=== PATIENT | female | born 1985 | race American Indian/Alaskan Native ===

== ENCOUNTER 2017-03-13 02:46 | Observation (INO) | payer BC, MEDICAID ==
[2017-03-13 02:47] VITALS: BMI 22.6
[2017-03-13] MEDS ORDERED: Morphine 4 mg/ml ISec IVP STA (02:58)
[2017-03-13] MEDS ORDERED: Sodium Chloride 0.9% 1,000 ML IV STA (02:58)
--- NOTE | 2017-03-13 03:08 | ED PDOC ---
Arrival/HPI - General Chief Complaint: Abdominal Pain Time Seen by Provider: 03/13/17 02:47 Historian: Patient - History of Present Illness Narrative History of Present Illness (Text): 03/13/17 03:08 A 31 year old female, who denies any past medical history, presents to the emergency department complaining of epigastric abdominal pain and vomiting for the past three hours. Patient denies any other complaints at this time. Denies any surgeries. Time/Duration: 1-3 hours Symptom Onset: Sudden Symptom Course: Unchanged Activities at Onset: Rest Context: Home Past Medical History - Provider Review Nursing Documentation Reviewed: Yes - Infectious Disease Hx of Infectious Diseases: None - Tetanus Immunization Tetanus Immunization: Unknown - Past Medical History Past Medical History: No Previous - Psychiatric Hx Depression: No Hx Emotional Abuse: No Hx Physical Abuse: No Hx Substance Use: No - Past Surgical History Past Surgical History: No Previous - Suicidal Assessment Feels Threatened In Home Enviroment: No Family/Social History - Physician Review Nursing Documentation Reviewed: Yes Family/Social History: No Known Family HX Smoking Status: Never Smoked Hx Alcohol Use: No Hx Substance Use: No Hx Substance Use Treatment: No Allergies/Home Meds Allergies/Adverse Reactions: Allergies No Known Allergies Allergy (Verified 03/13/17 02:56) Review of Systems - Physician Review All systems were reviewed & negative as marked: Yes - Review of Systems Constitutional: absent: Fevers Gastrointestinal: Abdominal Pain (epigastric), Vomiting Physical Exam Vital Signs Reviewed: Yes Vital Signs Temp Pulse Resp BP Pulse Ox 03/13/17 11:27 98.6 F 90 17 110/78 100 03/13/17 10:38 90 17 110/78 100 03/13/17 09:04 82 17 109/56 L 100 03/13/17 06:58 86 18 112/56 L 100 03/13/17 03:07 97.8 F 98 H 20 105/45 L 100 Appearance: Positive for: Uncomfortable Pain Distress: Mild Mental Status: Positive for: Alert and Oriented X 3 - Systems Exam Head: Present: Atraumatic, Normocephalic Pupils: Present: PERRL Extroacular Muscles: Present: EOMI Conjunctiva: Present: Normal Mouth: Present: Moist Mucous Membranes Neck: Present: Normal Range of Motion Respiratory/Chest: Present: Clear to Auscultation, Good Air Exchange. No: Respiratory Distress, Accessory Muscle Use Cardiovascular: Present: Regular Rate and Rhythm, Normal S1, S2. No: Murmurs Abdomen: Present: Tenderness (epigastric ), Normal Bowel Sounds. No: Distention , Peritoneal Signs Back: Present: Normal Inspection Upper Extremity: Present: Normal Inspection. No: Cyanosis, Edema Lower Extremity: Present: Normal Inspection. No: Edema Neurological: Present: GCS=15, CN II-XII Intact, Speech Normal Skin: Present: Warm, Dry, Normal Color. No: Rashes Psychiatric: Present: Alert, Oriented x 3, Normal Insight, Normal Concentration Medical Decision Making ED Course and Treatment: 03/13/17 03:06 Impression: A 31 year old female with epigastric abdominal pain and vomiting. Plan: -- labs -- Urinalysis -- Morphine, IV fluids, Zofran -- Reassess and disposition Prior Visits: Notes and results from previous visits were reviewed. Patient was last seen in the emergency department on 01/29/13 for evaluation of abdominal pain, nausea and vomiting. Progress Notes: CT Abdomen and Pelvis With Intravenous Contrast FINDINGS: Lower thorax: The bilateral lung bases are clear. ABDOMEN: Liver: No acute findings. Gallbladder and bile ducts: The gallbladder is minimally distended, without stones. No significant intra- or extrahepatic biliary ductal dilation. Pancreas: Enhances homogeneously. No ductal dilation. No discrete mass. Spleen: No acute findings. Adrenals: No acute findings. Kidneys and ureters: No acute findings. No hydronephrosis or renal calculi. No discrete solid mass. PELVIS: Bladder: The bladder is only minimally distended, without surrounding inflammation . Reproductive: The uterus is anteverted and anteflexed. The bilateral ovaries are not separately visualized. Appendix: The appendix is not definitively visualized, however no pericecal inflammatory change is identified to suggest the presence of acute appendicitis. ABDOMEN and PELVIS: Stomach and bowel: No obstruction. Limited additional evaluation secondary to motion artifact. Peritoneum: Free fluid is identified within the pelvis, although further evaluation is limited secondary to motion artifact. Lymph nodes: No pathologically enlarged lymph nodes. Vasculature: Unremarkable. Bones: No acute fracture. IMPRESSION: Free fluid within the pelvis, possibly physiologic in a patient of this age. Additional characterization is limited secondary to motion artifact and the lack of intra-abdominal fat. Perhaps a pelvic ultrasound may provide additional information (as the varies are not visualized), if the patient is clinically able. Dictated and Authenticated by: Kiersten Vines MD 03/13/2017 5:59 AM Eastern Time ([place] & [place]) - Lab Interpretations Lab Results: 03/13/17 03:30 03/13/17 03:30 Lab Results 03/13/17 03:30: Sodium 142, Potassium 4.7, Chloride 104, Carbon Dioxide 23, Anion Gap 20, BUN 15, Creatinine 0.6 L, Est GFR ( Amer) > 60, Est GFR ( Non-Af Amer) > 60, Random Glucose 125 H, Calcium 10.2, Total Bilirubin 0.9, AST 49 H, ALT 34, Alkaline Phosphatase 73, Total Protein 9.1 H, Albumin 5.3 H, Globulin 3.8, Albumin/Globulin Ratio 1.4, Lipase 95 03/13/17 03:30: PT 12.2 H, INR 1.11 H, APTT 25.3 03/13/17 03:30: WBC 9.6, RBC 4.85, Hgb 13.1, Hct 40.3, MCV 83.1, MCH 27.0, MCHC 32.5, RDW 14.6 H, Plt Count 230, MPV 10.3, Gran % 59.8, Lymph % (Auto) 34.8, Ramsey % (Auto) 4.6, Eos % (Auto) 0.5 L, Baso % (Auto) 0.3, Gran # 5.75, Lymph # 3.4, Ramsey # 0.4, Eos # 0.1, Baso # 0.03 03/13/17 02:58: Urine Color Yellow, Urine Appearance Clear, Urine pH 8.5, Ur Specific [place] 1.010, Urine Protein Negative, Urine Glucose (UA) Negative, Urine Ketones 15 H, Urine Blood Negative, Urine Nitrate Negative, Urine Bilirubin Negative, Urine Urobilinogen 0.2, Ur Leukocyte Esterase Negative, Urine HCG, Qual Negative I have reviewed the lab results: Yes - RAD Interpretation Radiology Orders: 03/13/17 04:27 ABD & PELVIS IV CONTRAST ONLY [CT] Stat - Medication Orders Current Medication Orders: Discontinued Medications Acetaminophen (Tylenol 325mg Tab) 650 mg PO Q6H PRN PRN Reason: Fever >100.4 F Sodium Chloride (Sodium Chloride 0.9%) 1,000 mls @ 1,000 mls/hr IV .Q1H STA Stop: 03/13/17 03:57 Last Admin: 03/13/17 03:47 Dose: 1,000 mls/hr eMAR Start Stop Document 03/13/17 03:47 [facility] (Rec: 03/13/17 03:47 SMA [id number]) Intravenous Solution Start Date 03/13/17 Start Time 03:30 End Date 03/13/17 End time 04:30 Total Infusion Time 60 Lactated Ringer's (Lactated Ringer's) 1,000 mls @ 100 mls/hr IV .Q10H [facility] Last Admin: 03/13/17 08:25 Dose: 100 mls/hr eMAR Start Stop Document 03/13/17 08:25 IT (Rec: 03/13/17 08:25 IT [id number]) Intravenous Solution Start Date 03/13/17 Start Time 08:25 Ketorolac Tromethamine (Toradol) 30 mg IVP STAT STA Stop: 03/13/17 05:34 Last Admin: 03/13/17 06:03 Dose: 30 mg MAR Pain Assessment Document 03/13/17 06:03 [facility] (Rec: 03/13/17 06:03 SMA [id number]) Pain Reassessment Is this a pain reassessment? No Sleep Is patient sleeping during reassessment? No Presence of Pain Presence of Pain Yes Pain Scale Used Pain Scale Used Numeric Location Pain Location Body Site Abdomen Description Description Sharp Intensity of Pain at present 6 IVP Administration Document 03/13/17 06:03 [facility] (Rec: 03/13/17 06:03 [facility] [id number]) Charges for Administration # of IVP Administrations 1 Ketorolac Tromethamine (Toradol) 30 mg IVP Q4 PRN PRN Reason: Pain, moderate (4-7) Ketorolac Tromethamine (Toradol) 30 mg IVP Q8 PRN PRN Reason: Pain, moderate (4-7) Metoclopramide HCl (Reglan) 10 mg IVP STAT STA Stop: 03/13/17 06:04 Last Admin: 03/13/17 06:42 Dose: 10 mg IVP Administration Document 03/13/17 06:42 [facility] (Rec: 03/13/17 06:42 [facility] [id number]) Charges for Administration # of IVP Administrations 1 Morphine Sulfate (Morphine) 2 mg IVP STAT STA Stop: 03/13/17 03:16 Last Admin: 03/13/17 04:10 Dose: 2 mg MAR Pain Assessment Document 03/13/17 04:10 [facility] (Rec: 03/13/17 04:11 [facility] [id number]) Pain Reassessment Is this a pain reassessment? No Sleep Is patient sleeping during reassessment? No Presence of Pain Presence of Pain Yes Pain Scale Used Pain Scale Used Numeric Location Pain Location Body Site Abdomen Description Description Sharp Intensity of Pain at present 7 Pain Behavior Moaning Guarding Irritability Alleviating Factors/Management Medication Techniques Alleviating Factors Position Change IVP Administration Document 03/13/17 04:10 [facility] (Rec: 03/13/17 04:11 [facility] [id number]) Charges for Administration # of IVP Administrations 1 Morphine Sulfate (Morphine) 2 mg IVP Q4 PRN PRN Reason: Pain, severe (8-10) Ondansetron HCl (Zofran Inj) 4 mg IVP STAT STA Stop: 03/13/17 02:59 Last Admin: 03/13/17 03:47 Dose: 4 mg IVP Administration Document 03/13/17 03:47 [facility] (Rec: 03/13/17 03:48 [facility] [id number]) Charges for Administration # of IVP Administrations 1 Ondansetron HCl (Zofran Inj) 4 mg IVP Q4 PRN PRN Reason: Nausea/Vomiting Pantoprazole Sodium (Protonix Inj) 40 mg IVP STAT STA Stop: 03/13/17 04:35 Last Admin: 03/13/17 04:44 Dose: 40 mg IVP Administration Document 03/13/17 04:44 [facility] (Rec: 03/13/17 04:44 [facility] [id number]) Charges for Administration # of IVP Administrations 1 Pantoprazole Sodium (Protonix Inj) 40 mg IVP Q12 RAD Last Admin: 03/13/17 11:40 Dose: 40 mg IVP Administration Document 03/13/17 11:40 [facility] (Rec: 03/13/17 13:41 DC [id number]) Charges for Administration # of IVP Administrations 1 - Scribe Statement The provider has reviewed the documentation as recorded by the Malcolmibjayesh Velásquez Provider Scribe Attestation: All medical record entries made by the Scribe were at my direction and personally dictated by me. I have reviewed the chart and agree that the record accurately reflects my personal performance of the history, physical exam, medical decision making, and the department course for this patient. I have also personally directed, reviewed, and agree with the discharge instructions and disposition. Disposition/Present on Arrival - Present on Arrival Any Indicators Present on Arrival: No History of DVT/PE: No History of Uncontrolled Diabetes: No Urinary Catheter: No History of Decub. Ulcer: No History Surgical Site Infection Following: None - Disposition Have Diagnosis and Disposition been Completed?: Yes Diagnosis: Intractable vomiting Disposition: HOSPITALIZED Disposition Time: 07:00 Condition: STABLE
[2017-03-13 03:09] VITALS: O2SAT 100
[2017-03-13] MEDS ORDERED: Morphine 2 mg/ml ISec IVP STA (03:15)
[2017-03-13 04:11] LABS: ALB/GLOB RATIO 1.4 (1.1-1.8); ALKALINE PHOSPHATASE 73 U/L (38-126); ALT/SGPT 34 U/L (7-56); AST/SGOT 49 U/L (14-36); BILIRUBIN,TOTAL 0.9 mg/dL (0.2-1.3); BLOOD UREA NITROGEN 15 mg/dL (7-21); CALCIUM 10.2 mg/dL (8.4-10.5); CARBON DIOXIDE 23 mmol/L (21-33); CHLORIDE 104 mmol/L (95-110); GFR AFRICAN-AMERICAN > 60; GLUCOSE,RANDOM 125 mg/dL (70-110); LIPASE 95 U/L (23-300); POTASSIUM 4.7 mmol/L (3.6-5.0); SODIUM 142 mmol/L (132-148); TOTAL PROTEIN 9.1 g/dL (5.8-8.3)
[2017-03-13 04:13] LABS: BASO # 0.03 K/mm3 (0.0-2.0); BASO % 0.3 % (0.0-3.0); EOS # 0.1 (0.0-0.7); EOS % 0.5 % (1.5-5.0); GRAN # 5.75 (1.4-6.5); GRAN % 59.8 % (50.0-68.0); HEMATOCRIT 40.3 % (36.0-48.0); LYMPH # 3.4 (1.2-3.4); LYMPH % 34.8 % (22.0-35.0); MEAN CELL VOLUME 83.1 fl (80.0-105.0); MEAN CORPUSCULAR HGB CONC 32.5 g/dl (31.0-37.0); MEAN PLATELET VOLUME 10.3 fl (7.0-11.0); MONO # 0.4 (0.1-0.6); MONO % 4.6 % (1.0-6.0); RED CELL DISTRIBUTION WIDTH 14.6 % (11.5-14.5); WHITE BLOOD COUNT 9.6 10^3/ul (4.5-11.0)
[2017-03-13 04:21] LABS: INR 1.11 (0.93-1.08); PARTIAL THROMBOPLASTIN TIME 25.3 Seconds (23.7-30.8)
[2017-03-13] MEDS ORDERED: Iohexol 350 MG/100 ML VIAL ONE (04:37)
--- NOTE | 2017-03-13 05:59 | CT ---
EXAM: CT Abdomen and Pelvis With Intravenous Contrast CLINICAL HISTORY: 31 years old, female; Pain; Abdominal pain; Generalized; Additional info: Abd pain vomiting TECHNIQUE: Axial computed tomography images of the abdomen and pelvis with intravenous contrast. All CT scans at this facility use one or more dose reduction techniques, viz.: automated exposure control; ma/kV adjustment per patient size (including targeted exams where dose is matched to indication; i.e. head); or iterative reconstruction technique. Coronal and sagittal reformatted images were created and reviewed. CONTRAST: 96 mL of OMNI 350 administered intravenously. COMPARISON: No relevant prior studies available. Examination is markedly limited by a significant amount of motion artifact, as well as the lack of intra-abdominal fat. FINDINGS: Lower thorax: The bilateral lung bases are clear. ABDOMEN: Liver: No acute findings. Gallbladder and bile ducts: The gallbladder is minimally distended, without stones. No significant intra- or extrahepatic biliary ductal dilation. Pancreas: Enhances homogeneously. No ductal dilation. No discrete mass. Spleen: No acute findings. Adrenals: No acute findings. Kidneys and ureters: No acute findings. No hydronephrosis or renal calculi. No discrete solid mass. PELVIS: Bladder: The bladder is only minimally distended, without surrounding inflammation . Reproductive: The uterus is anteverted and anteflexed. The bilateral ovaries are not separately visualized. Appendix: The appendix is not definitively visualized, however no pericecal inflammatory change is identified to suggest the presence of acute appendicitis. ABDOMEN and PELVIS: Stomach and bowel: No obstruction. Limited additional evaluation secondary to motion artifact. Peritoneum: Free fluid is identified within the pelvis, although further evaluation is limited secondary to motion artifact. Lymph nodes: No pathologically enlarged lymph nodes. Vasculature: Unremarkable. Bones: No acute fracture. IMPRESSION: Free fluid within the pelvis, possibly physiologic in a patient of this age. Additional characterization is limited secondary to motion artifact and the lack of intra-abdominal fat. Perhaps a pelvic ultrasound may provide additional information (as the varies are not visualized), if the patient is clinically able.
[2017-03-13 06:56] LABS: PH,URINE 8.5 (4.7-8.0); URINE BILIRUBIN NEGATIVE (NEGATIVE); URINE BLOOD NEGATIVE (NEGATIVE); URINE GLUCOSE (UA) NEGATIVE (NEGATIVE); URINE KETONE 15 mg/dL (NEGATIVE); URINE LEUKOCYTE ESTERASE NEGATIVE Leu/uL (NEGATIVE); URINE PROTEIN NEGATIVE mg/dL (<30 mg/dL); URINE UROBILINOGEN 0.2 E.U./dL (<1 E.U./dL)
[2017-03-13 06:58] LABS: URINE APPEARANCE CLEAR (CLEAR); URINE COLOR YELLOW (YELLOW)
[2017-03-13] MEDS ORDERED: Morphine 2 mg/ml ISec IVP PRN (07:53)
[2017-03-13] MEDS ORDERED: Lactated Ringer's 1,000 ML IV SCH (08:00)
[2017-03-13 09:05] VITALS: RESP 17
[2017-03-13 10:39] VITALS: BP 110/78; PULSE 90
[2017-03-13 11:28] VITALS: TEMP 98.6
--- NOTE | 2017-03-13 11:31 | US ---
HISTORY: 31 F with lower abdominal pain. LMP 02/17/2017 COMPARISON: CT abdomen and pelvis 03/13/2017 TECHNIQUE: Transabdominal FINDINGS: UTERUS: Measures 9.0 x 4.2 x 6.5 cm. And is anteverted Normal in size and appearance. No fibroid or other mass lesion seen. ENDOMETRIUM: Measures 8.7 mm in diameter. Unremarkable. CERVIX: No cervical abnormality identified. RIGHT OVARY: Measures 3.0 x 2.4 x 2.0 cm. No solid mass. Normal flow. LEFT OVARY: Measures 3.3 x 2.1 x 2.1 cm. No solid mass. Normal flow. FREE FLUID: There is a minimal amount of pelvic free fluid present. OTHER FINDINGS: None. IMPRESSION: Unremarkable appearing ovaries. Minimal pelvic free fluid - in this age group, physiologic free fluid from recent follicular cyst rupture is most likely. Unremarkable appearing uterus No adnexal pathology noted
--- NOTE | 2017-03-13 12:03 | CP.PCM.HP ---
Addendum entered and electronically signed by Real Lorenzo DO 03/13/17 16:10 : During hospital stay, patient feeling significantly better after IVF and temporary bowel rest. Patient was given a soft diet and was tolerated well. Patient cleared for discharge in stable condition. d/w Medical Attending Real Lorenzo PGY1 Original Note: <Real Lorenzo - Last Filed: 03/13/17 12:32> History of Present Illness - History of Present Illness History of Present Illness: 31F no relevant PMHx, [place] [facility] for epigastrium pain w/ nausea and mulitple episodes of bilious non blood vomiting that woke her up from sleep and started at midnight. Upon arrival had an episode of non bloody loose BM. Prior to symptoms starting, pt says she had her last meal was at noon yesterday. She ate left over steak from the night before. There are no alleviating factors. Pt states she every couple of times per year, she gets severe episodes of gastroenteritis. Denies F/C CP/SOB numbness/tingling in extremities, vision changes, GAY LMP: 4 weeks ago PMH: one child, vaginal delivery no complications. 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 social ETOH, denies tobacco use, occasional marijuina use. Present on Admission - Present on Admission Any Indicators Present on Admission: No Review of Systems - Review of Systems All systems: reviewed and no additional remarkable complaints except - Constitutional Constitutional: As Per HPI Past Patient History - Infectious Disease Hx of Infectious Diseases: None - Tetanus Immunizations Tetanus Immunization: Unknown - Past Social History Smoking Status: Never Smoked - PSYCHIATRIC Hx Depression: No Hx Emotional Abuse: No Hx Physical Abuse: No Hx Substance Use: No - SURGICAL HISTORY Hx Surgeries: No Meds Allergies/Adverse Reactions: Allergies Allergy/AdvReac Type Severity Reaction Status Date / Time No Known Allergies Allergy Verified 03/13/17 02:56 Physical Exam - Constitutional Appears: Non-toxic, No Acute Distress - Eye Exam Eye Exam: EOMI. absent: Scleral icterus - ENT Exam ENT Exam: Mucous Membranes Dry - Respiratory Exam Respiratory Exam: NORMAL BREATHING PATTERN. absent: Accessory Muscle Use, Respiratory Distress - Cardiovascular Exam Cardiovascular Exam: +S1, +S2. absent: Bradycardia, Tachycardia - GI/Abdominal Exam GI & Abdominal Exam: Normal Bowel Sounds, Soft. absent: Distended, Guarding, Rigid, Tenderness - Extremities Exam Extremities exam: Positive for: normal inspection. Negative for: calf tenderness - Back Exam Back exam: absent: CVA tenderness (L), CVA tenderness (R) Results - Vital Signs Recent Vital Signs: Last Vital Signs Temp 98.6 F 03/13/17 11:27 Pulse 90 03/13/17 11:27 Resp 17 03/13/17 11:27 BP 110/78 03/13/17 11:27 Pulse Ox 100 03/13/17 11:27 - Labs Result Diagrams: 03/13/17 03:30 03/13/17 03:30 Assessment & Plan - Assessment and Plan (Free Text) Assessment: 31F no relevant PMHx w/ abdominal pain possible viral gastroenteritis CT scan: pelvic fluid Pelvic US: Ovaries visualized, physiologic pelvic fluid Gastroenteritis CLD IVF aggressive rehydrate anti-emetics f/u Labs PPX PTX counseled pt on the risk factors of smoking marijuina and advised pt to stop Real Ingridstan PGY1 <Page Fuentes - Last Filed: 03/14/17 14:07> Results - Vital Signs Recent Vital Signs: Last Vital Signs Temp 98.6 F 03/13/17 11:27 Pulse 90 03/13/17 11:27 Resp 17 03/13/17 11:27 BP 110/78 03/13/17 11:27 Pulse Ox 100 03/13/17 11:27 - Labs Result Diagrams: 03/13/17 03:30 03/13/17 03:30 Attending/Attestation - Attestation I have personally seen and examined this patient.: Yes I have fully participated in the care of the patient.: Yes I have reviewed all pertinent clinical information: Yes Notes (Text): 03/14/17 14:04 Patient was seen and examined with manager of medical. Agreed with resident assessment and plan. 31 yrs old female with out any significant PMH was admitted with intractable nausea and vomiting.Patient symptoms has improved since admission.Last episode of vomiting was 8 hrs back, she is tolerating diet.She will be discharged home and will follow up with PCP. Management plan was discussed in detail with patient Education was provided.
== END 2017-03-13 16:27 | disposition home or self-care (01) ==
LOC: ED 02:46 → ERH 06:11 → 3RSO 11:34
PROVIDERS: ADMIT Internal Medicine; ATTEND Internal Medicine
DX: A08.4 Viral intestinal infection, unspecified (principal)
CPT/HCPCS: 74177; 76856; 80053; 81003; 83690; 84703; 85025; 85610; 85730; 96361; 96374; 96375; 96376; 99285; C9113; G0378; J1885; J2270; J2405; J2765; J7040; J7120; Q9967

== ENCOUNTER 2017-12-27 22:29 | Emergency (ER) | payer MEDICAID ==
[2017-12-27 22:29] VITALS: BMI 22.6
[2017-12-27 23:15] VITALS: O2SAT 99
--- NOTE | 2017-12-27 23:59 | ED PDOC ---
Arrival/HPI - General Chief Complaint: Upper Extremity Problem/Injury Time Seen by Provider: 12/27/17 23:15 Historian: Patient - History of Present Illness Narrative History of Present Illness (Text): 12/27/17 23:48 32yo female with no pmhx who present with complaint of left shoulder pain x one week. States pain started when she did a flip and heard a crack. she came to the ED for the persistent pain. Did not take any medication. Denies focal weakness, paresthesia. Past Medical History - Provider Review Nursing Documentation Reviewed: Yes - Infectious Disease Hx of Infectious Diseases: None - Tetanus Immunization Tetanus Immunization: Unknown - Past Medical History Past Medical History: No Previous - Psychiatric Hx Depression: No Hx Emotional Abuse: No Hx Physical Abuse: No Hx Substance Use: No - Past Surgical History Past Surgical History: No Previous - Anesthesia Hx Anesthesia: No - Suicidal Assessment Feels Threatened In Home Enviroment: No Family/Social History - Physician Review Nursing Documentation Reviewed: Yes Family/Social History: Unknown Family HX Smoking Status: Never Smoked Hx Alcohol Use: No Hx Substance Use: No Hx Substance Use Treatment: No Allergies/Home Meds Allergies/Adverse Reactions: Allergies No Known Allergies Allergy (Verified 12/27/17 23:11) Review of Systems - Physician Review All systems were reviewed & negative as marked: Yes - Review of Systems Constitutional: Normal Eyes: Normal ENT: Normal Respiratory: Normal Cardiovascular: Normal Gastrointestinal: Normal Genitourinary Female: Normal Musculoskeletal: Arthralgias (LEft shoulder pain) Skin: Normal Neurological: Normal Endocrine: Normal Hemo/Lymphatic: Normal Psychiatric: Normal Physical Exam Vital Signs Reviewed: Yes Vital Signs Temp Pulse Resp BP Pulse Ox 12/28/17 01:00 98 F 79 18 113/61 99 12/27/17 23:12 98.7 F 83 17 114/56 L 99 Temperature: Afebrile Blood Pressure: Normal Pulse: Regular Respiratory Rate: Normal Appearance: Positive for: Well-Appearing, Non-Toxic, Comfortable Pain Distress: None Mental Status: Positive for: Alert and Oriented X 3 - Systems Exam Head: Present: Atraumatic, Normocephalic Pupils: Present: PERRL Extroacular Muscles: Present: EOMI Conjunctiva: Present: Normal Mouth: Present: Moist Mucous Membranes Neck: Present: Normal Range of Motion Respiratory/Chest: Present: Clear to Auscultation, Good Air Exchange. No: Respiratory Distress, Accessory Muscle Use Cardiovascular: Present: Regular Rate and Rhythm, Normal S1, S2. No: Murmurs Abdomen: No: Tenderness, Distention, Peritoneal Signs Back: Present: Normal Inspection Upper Extremity: Present: Normal ROM, NORMAL PULSES, Tenderness (Anterior left shoulder), Neurovascularly Intact. No: Cyanosis, Edema, Swelling, Deformity Lower Extremity: Present: Normal Inspection. No: Edema Neurological: Present: GCS=15, CN II-XII Intact, Speech Normal Skin: Present: Warm, Dry, Normal Color. No: Rashes Psychiatric: Present: Alert, Oriented x 3, Normal Insight, Normal Concentration Medical Decision Making ED Course and Treatment: 12/28/17 00:26 PT in ED for stated history. She was not in any distress. comfortable and hemodynamically stable. Left shoulder xray - No acute fracture Result was DW the pt. DC home with ibuprofen. Referred to her PMD/ortho. - RAD Interpretation Radiology Orders: 12/27/17 23:15 SHOULDER LEFT [RAD] Stat - Medication Orders Current Medication Orders: Discontinued Medications Ibuprofen (Motrin Tab) 600 mg PO STAT STA Stop: 12/28/17 00:03 Last Admin: 12/28/17 00:11 Dose: 600 mg MAR Pain/Vitals Document 12/28/17 00:11 [facility] (Rec: 12/28/17 00:12 [id number] Pain Reassessment Is This A Pain ReAssessment? No Sleep Is patient sleeping during reassessment? No Presence of Pain Presence of Pain Yes Pain Scale Used Pain Scale Used Numeric Location Left, Right or Bilateral Left Pain Location Body Site Shoulder Description Throbbing Intensity 7 Scale Used Numeric Pain Behavior Rubbing Site Aggravating Factors ADL's Disposition/Present on Arrival - Present on Arrival Any Indicators Present on Arrival: No History of DVT/PE: No History of Uncontrolled Diabetes: No Urinary Catheter: No History of Decub. Ulcer: No History Surgical Site Infection Following: None - Disposition Have Diagnosis and Disposition been Completed?: Yes Diagnosis: Shoulder pain Disposition: HOME/ ROUTINE Disposition Time: 00:35 Patient Plan: Discharge Condition: STABLE Discharge Instructions (ExitCare): Shoulder Pain (DC) Additional Instructions: Follow up with your Doctor Return to ED for any new symptoms Prescriptions: Ibuprofen [Motrin Tab] 600 mg PO Q6 #15 tab Referrals: Jermain Sparks DO [Staff Provider] - Follow up with primary Forms: [employer] (Spanish)
[2017-12-28 01:02] VITALS: BP 113/61; PULSE 79; RESP 18; TEMP 98
--- NOTE | 2017-12-28 08:25 | RAD ---
Date of service: 12/28/2017 PROCEDURE: Radiographs of the Left Shoulder HISTORY: shoulder pain COMPARISON: No prior. FINDINGS: BONES: Normal. No fracture. JOINTS: Normal. Glenohumeral and acromioclavicular joints preserved. No osteoarthritis. SOFT TISSUES: Normal. OTHER FINDINGS: None. IMPRESSION: Normal radiographs of the left shoulder.
== END 2017-12-28 01:01 | disposition home or self-care (01) ==
LOC: ED 22:29
DX: M25.512 Pain in left shoulder (principal)